=== PATIENT | female | born 1925 | race Caucasian/White ===

== ENCOUNTER → 2016-07-21 | Day surgery (SDC) | payer MEDICARE ==
[~2016-07-21] MED LIST: ACET1CAP18 PO; ACET325 PO; AMLO10 PO; AMLO10TA2 PO; AMOX500C PO; AMOX500T PO; ARTI1DRO EACH EYE; CALC1TAB87 PO; CALC600T10 PO; COUM7.5T PO; DONE10TA7 PO; HYDR-2768 PO; HYDR-3533 PO; HYDR-3583 PO; LACTATED RINGER'S 1000 ML INJ 1,000 ML ONE; LIDOCAINE 1%/EPINEPHrine 1:100,000 SOLN 30 ML VIAL ONE; LOVA40TA PO; MEVA40TA6 PO; MULT1TAB84 PO; OCUVTAB4 PO; OMEP20CA5 PO; OMEP20TA PO; OXYB5TAB10 PO; PRESCAP5 PO; PROPOFOL 200 MG/20 ML AMP IV ONE; TRIAMCINOLONE ACETONIDE 40 MG/ML VIAL ONE; VITA1000 PO; WARF-21 PO; WARF-23 PO; WARF5TAB PO; [UNRECOGNIZED DRUG - CODE] PO
--- NOTE | 2016-07-21 15:28 | TN ---
cc: PIPER YU DATE OF SURGERY: 07/21/2016 PREOPERATIVE DIAGNOSIS 1. Osteoarthritis right hip. 2. Arthrofibrosis right hip. POSTOPERATIVE DIAGNOSIS 1. Osteoarthritis right hip. 2. Arthrofibrosis right hip. PROCEDURE 1. Manipulation right hip under anesthesia. 2. Injection of Kenalog right hip, 40 mg. 3. Use of fluoroscopy for percutaneous guidance. 4. Arthrogram of the right hip. 5. X-ray, two-view, AP and lateral, post manipulation and arthrogram. SURGEON Piper Yu ANESTHESIA TIVA. ESTIMATED BLOOD LOSS Minimal. INDICATION This is an 89-year-old female with significant right hip pain. Investigative study shows severe arthritis of the right hip. The patient has had extensive conservative care outlined in the office record. She is having progressive pain. She has had a previous left hip replacement surgery, doing well. She is having physical therapy to the right hip and scheduled now for an injection of cortisone with manipulation and arthrogram. DETAILS OF PROCEDURE The patient was brought to the operating, anesthetized in the supine position. The right leg was scrubbed with alcohol followed by Hibiclens followed by ChloraPrep and draped sterilely. Antibiotics were held. The right hip was evaluated. Range of motion extension 0, flexion 80, internal rotation 20, external rotation 30, abduction 20, adduction 10. Significant pain with range of motion is seen. The left hip was compared and had normal motion. The right hip was visualized under fluoroscopy. It was scrubbed with alcohol followed by Hibiclens followed by ChloraPrep and draped sterilely. A 22-gauge spinal needle was advanced down to the anterior aspect of the right hip joint. Fluid was aspirated. An arthrogram was performed injecting Omnipaque 180. This showed pitting and erosive changes. There was leak of contrast posteriorly that was noted. A flattened area of the femoral head was seen. The hip was aspirated and then injected with 40 mg of Kenalog and 3 cc of 1% lidocaine plain. A second manipulation was performed. Post manipulation range of motion, flexion 110, internal rotation 25, external rotation 30, adduction 25, abduction 30. An intraoperative x-ray is obtained showing the changes on the arthrogram as indicated previously and no evidence of a fracture. There was severe arthritis. Piper MD KAUSHIK Fermin/MISSY /3:04 PM /3:20 PM
== END | disposition home or self-care (01) ==
LOC: ESDC 12:13
PROVIDERS: ATTEND Orthopaedic Surgery Orthopaedic Surgery of the Spine
DX: M16.11 Unilateral primary osteoarthritis, right hip (principal); M24.651 Ankylosis, right hip
CPT/HCPCS: 01200; 27275; 73502; J3010; J3301; J7120